=== PATIENT | female | born 1995 | race Two or more races ===

== ENCOUNTER 2021-11-29 14:21 | Outpatient (CLI) | payer OTHER ==
[~2021-11-29 14:21] MED LIST: CODE1TAB37 PO; NAPR500T14 PO; PRENATAL TABLE1 EAC1 PO
== END 2021-11-29 16:09 | disposition home or self-care (01) ==
LOC: PRENATAL 14:21
PROVIDERS: ATTEND Obstetrics & Gynecology Maternal & Fetal Medicine
DX: O35.0XX1 Maternal care for (suspected) central nervous system malformation in fetus, fetus 1 (principal); O35.3XX1 Maternal care for (suspected) damage to fetus from viral disease in mother, fetus 1; O98.512 Other viral diseases complicating pregnancy, second trimester; O09.512 Supervision of elderly primigravida, second trimester; Z36.89 Encounter for other specified antenatal screening; Z3A.23 23 weeks gestation of pregnancy

== ENCOUNTER 2022-02-20 11:37 | Inpatient (IN) | payer OTHER ==
[~2022-02-20] VITALS: Ht 152.4 cm; Wt 64.0 kg
[2022-02-23] MEDS ORDERED: COLACE100 MG PO (10:57)
[2022-02-23] MEDS ORDERED: SIMETHICONE80 MG PO (10:57)
[2022-02-23] MEDS ORDERED: PERCOCET 5-3251 EACH PO (10:57)
[2022-02-23] MEDS ORDERED: IBU800 MG PO (10:57)
== END 2022-02-23 13:45 | disposition home or self-care (01) | DRG 788 ==
LOC: LDR 11:37 → OB/GYN 20:14
PROVIDERS: ADMIT Obstetrics & Gynecology; ATTEND Obstetrics & Gynecology
PROC: 4A1HXCZ Monitoring of Products of Conception, Cardiac Rate, External Approach (ICD-10-PCS; 2022-02-20)
PROC: 10D00Z1 Extraction of Products of Conception, Low, Open Approach (ICD-10-PCS; principal; 2022-02-20 17:30)
DX: O60.14X0 Preterm labor third trimester with preterm delivery third trimester, not applicable or unspecified (principal); O34.211 Maternal care for low transverse scar from previous cesarean delivery; Z3A.36 36 weeks gestation of pregnancy; Z37.0 Single live birth; Z20.822 Contact with and (suspected) exposure to COVID-19